=== PATIENT | female | born 1950 | race Caucasian/White ===

== ENCOUNTER 2017-01-08 20:07 | Inpatient (IN) ==
[2017-01-08] MEDS ORDERED: DILAUDID IV ONE (20:17)
[2017-01-08] MEDS ORDERED: ZOFRAN IV ONE (20:17)
[2017-01-08 21:53] LABS: URINE MICRO REVIEW NEEDED? NO; URINE SOURCE CATH
[2017-01-08 21:53] LABS: MANUAL DIFF NEEDED? NO
[2017-01-08 22:00] LABS: BASO% 0.3 % (0.0-0.8); HEMATOCRIT 32.6 % (37.0-47.0); HEMOGLOBIN 11.2 g/dL (12.0-16.0); IMM GRAN# 0.03 X1000 (0.0-0.04); IMM GRAN% 0.5 % (0.0-0.5); LYMPH# 0.81 X1000 (1.2-3.4); LYMPH% 14.1 % (20.5-51.1); MCH 31.5 PG (27-31); MCHC 34.4 g/dL (33-37); MCV 91.8 FL (81-99); MONO# 0.79 X1000 (0.11-0.59); MONO% 13.8 % (1.7-9.3); NEUT% 71.3 % (42.2-75.2); PLT 350 X1000 (130-400); RBC 3.55 XMIL (4.2-5.4)
[2017-01-08 22:02] LABS: BILIRUBIN URINE NEGATIVE (NEGATIVE); BLOOD URINE NEGATIVE (NEGATIVE); COLOR YELLOW; GLUCOSE URINE NEGATIVE (NEGATIVE); LEUKOCYTES URINE NEGATIVE (NEGATIVE); NITRITE URINE NEGATIVE (NEGATIVE); PH URINE 8.5; PROTEIN URINE NEGATIVE (NEGATIVE); SP GRAVITY URINE 1.012; TURBIDITY URINE CLEAR (CLEAR); UROBILINOGEN URINE 2 mg/dL (NORMAL)
[2017-01-08 22:03] LABS: UR EPITHELIAL CELLS <10 /HPF (<10); URINE BACTERIA NEGATIVE /HPF; URINE RBC <10 /HPF (<10); URINE WBC <10 /HPF (<10)
[2017-01-08] MEDS ORDERED: DILAUDID IV PRN (22:03)
[2017-01-08] MEDS ORDERED: TYLENOL PO PRN (22:03)
[2017-01-08] MEDS ORDERED: ZOFRAN IV PRN (22:03)
[2017-01-08 22:06] LABS: INR 0.96; PROTIME 10.1 Seconds (9.2-11.7); PTT 26.7 Seconds (22.0-36.0)
[2017-01-08 22:23] LABS: ALBUMIN 4.1 g/dL (3.5-5.0); CALCIUM 9.9 mg/dL (8.8-10.2); POTASSIUM 3.5 mmol/L (3.5-5.1); TOTAL BILIRUBIN 0.18 mg/dL (0.20-1.00)
[2017-01-08] MEDS: NS 1,000 ML IV SCH (22:33)
[2017-01-08] MEDS ORDERED: VALIUM PO ONE (22:39)
[2017-01-08] MEDS ORDERED: VALIUM IV ONE (22:43)
[2017-01-08] MEDS ORDERED: SODIUM CHLORIDE 0.9% INJ SCH (22:45)
[2017-01-08] MEDS ORDERED: KLOR-CON PO ONE (22:57)
[2017-01-08] MEDS ORDERED: DUONEB (A & A) INH PRN (23:00)
[2017-01-08] MEDS: PEPCID IV SCH (23:23)
[2017-01-09] MEDS: DILAUDID IV PRN ×3 (01:19→11:22)
--- NOTE | 2017-01-09 04:26 | HISTORY AND PHYSICAL ---
PRIMARY CARE PHYSICIAN: Dr. Hernandez REASON FOR ADMISSION: Right hip pain. HISTORY OF PRESENT ILLNESS: Ms. Marcelle Norman is a 66-year-old lady with past history of hypertension, hypothyroidism, hyperlipidemia, and COPD on home O2. She also has a history of reflux disease. She comes in today after sustaining a fall and being unable to get up because of intense pain in her right hip. She said she had just gotten up from a sitting position and noticed her right leg was "." She normally has these spells every now and again and usually shakes her right leg to improve the circulation. On this occasion, she tried to shake her right leg and in the process, lost balance fell forward, landed on her right knee and then fell onto the right side of her hip. She denied any contact with her head to the floor or loss of consciousness. No antecedent cardiorespiratory symptoms. When she tried to get up, the pain was so intense, she called for help from her , who subsequently called EMS and brought her in for further evaluation. REVIEW OF SYSTEMS: Twelve system review is negative. Only notable for constipation and slowly progressively worsening exercise tolerance and dyspnea on exertion. Twelve system review is negative. Positive as per HPI. ALLERGIES: Codeine. HOME MEDICATIONS: She is on gabapentin 300 mg t.i.d., Synthroid 1000 mcg daily , lisinopril 5 mg daily, lovastatin 40 mg daily, Procardia 90 mg daily, omeprazole 40 mg daily, potassium 20 mEq daily, Carafate 1 g t.i.d., trazodone 100 mg at bedtime, chlorthalidone 25 mg daily, Prozac 60 mg t.i.d., Depakote 500 mg daily. SURGICAL HISTORY: She has had multiple back surgeries, neck surgery, hysterectomy, cholecystectomy, bilateral carpal tunnel and bilateral hip and lots of shoulder surgeries. FAMILY HISTORY: Notable for congestive heart failure, DVTs, atrial fibrillation. No diabetes. SOCIAL HISTORY: Lives with her spouse. Does not smoke, drink or use illicit drugs. LABORATORY WORK: White count 5000, hemoglobin 11 and hematocrit 32, platelets 350,000. Normal differential. Potassium 3.5. Sodium 134, BUN 17, creatinine 1.1. PT/PTT is normal. Urinalysis is clean. Chest x-ray shows no infiltrate and no cardiopulmonary abnormality. Hip x-ray and right pelvic x-ray shows an impaction fracture of the right neck of the femur. PHYSICAL EXAMINATION: GENERAL: Middle-aged woman who is in moderate distress from her pain. VITAL SIGNS: Blood pressure is 106/50, heart rate 67, respirations 16, temperature 98.2 degrees, O2 98% on room air. HEENT: Head is normocephalic, atraumatic. Eyes DARION, EOMI. She is anicteric but pale. ENT and oropharyngeal exam is grossly normal. NECK: Supple. No JVD or carotid bruit. No thyromegaly. CHEST: Clear to auscultation with good air to both lung espinal. CARDIOVASCULAR: First and second heart sounds heard. No gallops, murmurs or rubs. Rhythm is regular. ABDOMEN: Full, soft, no tenderness. No organomegaly. Bowel sounds normal. RECTAL: Deferred at this time. EXTREMITIES: Patient has noticeably shortened and externally rotated right lower extremity but pulses distally in all extremities are intact with good volume and are symmetrical. No clubbing or peripheral cyanosis or edema. NEUROLOGICAL: Grossly intact. Although, she is able to wiggle her toes on her right foot, but unable to move the right leg because for obvious reasons. SKIN: Intact with no breakdown lesion or pain. MUSCULAR: Exam see above. ASSESSMENT: 1. Right hip fracture. 2. Hypertension. 3. Hyperlipidemia. 4. Hypothyroidism. 5. Chronic obstructive pulmonary disease on home O2. 6. Hypokalemia. PLAN: At this time, Dr. Blake, the orthopedic surgeon, was notified and he will see the patient later in the morning. Keep patient NPO and treat her symptomatically regarding her pain and muscle spasms. She may require Hancock's traction and I have instructed the nurse to contact Dr. Blake for further orders. Cautious use of antihypertensives in this patient, and unless systolic blood pressure are greater than 150. DVT prophylaxis will be determined by the surgeon. P.r.n. nebulizer treatments and home O2 will be administered regarding patient's underlying COPD. Avoid any excessive [employer] medications due to the fact the patient will be probably undergoing general anesthesia and we will need to avoid drug interaction. cc: MD Alberto Crawford MD MTDD
[2017-01-09 05:22] LABS: MCH 32.2 PG (27-31); MCHC 33.3 g/dL (33-37); MCV 96.5 FL (81-99); MPV 9.9 FL (7.4-10.4); RBC 3.11 XMIL (4.2-5.4)
[2017-01-09] MEDS: SYNTHROID PO SCH ×2 (05:43→06:11)
[2017-01-09 05:45] LABS: AGAP 11; BUN 13 mg/dL (8-22); CALCIUM 8.8 mg/dL (8.8-10.2); CHLORIDE 98 mmol/L (98-107); COSMO 271; SODIUM 135 mmol/L (136-145); TCO2 26 mmol/L (25-35)
[2017-01-09] MEDS ORDERED: NEURONTIN PO SCH (09:00)
[2017-01-09] MEDS ORDERED: KEFZOL 1 GM/D5W 1 GM/50 ML IVPB IV ONE (09:03)
[2017-01-09] MEDS: PRINIVIL PO SCH (09:42)
[2017-01-09] MEDS: LASIX PO SCH (09:42)
[2017-01-09] MEDS: DEPAKOTE PO SCH (09:42)
[2017-01-09] MEDS: NEURONTIN PO SCH ×3 (09:42→17:02)
[2017-01-09] MEDS: ADALAT CC PO SCH (09:42)
--- NOTE | 2017-01-09 10:05 | Diag Imaging Result Doc PS360 ---
CHEST-PORTABLE - 01/08/2017 INDICATION: PRE-OP TECHNIQUE: COMPARISON: 05/25/2015 FINDINGS: The lungs are normally expanded and clear. Heart size and mediastinal contours are normal. No pneumothorax or pleural effusion. IMPRESSION: Negative exam. Electronically signed by David Escobar 01/09/2017 10:03 AM
--- NOTE | 2017-01-09 10:05 | Diag Imaging Result Doc PS360 ---
XRAY PELVIS W/HIP 2-3VW RT - 01/08/2017 INDICATION: FALL TECHNIQUE: Two views COMPARISON: 05/25/2015 FINDINGS: There is an acute comminuted impacted right femoral neck fracture. No dislocation. No obvious pelvis fractures otherwise. IMPRESSION: Acute right hip fracture. Electronically signed by David Escobar 01/09/2017 10:02 AM
--- NOTE | 2017-01-09 11:18 | PROGRESS NOTE ---
DATE: 01/09/2017 SUBJECTIVE: She feels comfortable. She did get some rest last night. She is awake, alert, and oriented x3. Breathing comfortably. OBJECTIVE: Vital signs: Temperature 98.3 degrees, pulse 56, respirations 12, blood pressure 118/98. Neck: CVP less than 6 cm. Lungs: Clear in all lung espinal. Cardiovascular: Regular rhythm and rate, without murmur or S3. Abdomen: Soft. Skin: Warm and dry. WEIGHT: 155 pounds. URINE OUTPUT: 1300 mL. LABORATORY: White count 6580, hematocrit 30, platelet count 289,000. Sodium 135, potassium 4.0, chloride 98, bicarbonate 26, BUN 13, creatinine 0.9, blood sugar 110. ASSESSMENT AND PLAN: 1. Right hip fracture. She fell after getting out of her recliner. Dr. Dung Blake has seen the patient and plan is for open reduction, internal fixation this morning. 2. Hypertension. Blood pressure well controlled. 3. Hypothyroidism. Appears euthyroid. 4. History of chronic obstructive pulmonary disease, on home oxygen. Breathing comfortably. Pain control appears to be good. REVIEW OF ORDERS: She is on Mevacor 40 mg a day. She is on nifedipine ER 30 mg a day. Getting normal saline at 100 mL an hour. Prinivil 20 mg a day. Synthroid 75 mcg daily. Gets Dilaudid 1 mg IV q.3 hours. Neurontin 300 mg p.o. t.i.d. Lasix 20 mg daily. Prozac 20 mg a day. Pepcid 20 mg IV q.12 hours. Depakote 500 mg a day. LABORATORY REVIEW: Renal function looks good. Creatinine 0.9. Hematocrit when she presented was 32. This morning, it was 30. Hemoglobin of 10. PAST MEDICAL HISTORY REVIEW: She has had multiple back surgeries, neck surgery, hysterectomy, cholecystectomy, bilateral carpal tunnel, bilateral hip, and lots of shoulder surgeries. cc: Justyn Fish MD
[2017-01-09] MEDS: NS 1,000 ML IV SCH ×2 (11:23→19:01)
[2017-01-09] MEDS ORDERED: KEFZOL 1 GM/D5W 1 GM/50 ML IVPB ONE (12:57)
[2017-01-09] MEDS ORDERED: NEOSPORIN G.U. IRRIGANT ONE (12:58)
[2017-01-09] MEDS ORDERED: EXPAREL 1.3% ONE (13:03)
[2017-01-09] MEDS ORDERED: MARCAINE 0.25% PF/EPI 1:200,000 ONE (13:04)
[2017-01-09] MEDS ORDERED: TORADOL ONE (13:05)
[2017-01-09] MEDS ORDERED: SODIUM CHLORIDE 0.9% ONE (13:05)
[2017-01-09] MEDS ORDERED: DIPRIVAN 1% ONE (13:14)
[2017-01-09] MEDS ORDERED: ZOFRAN ONE (13:15)
[2017-01-09] MEDS ORDERED: SODIUM CHLORIDE 0.9% 10 ML ONE ×2 (13:15→13:47)
[2017-01-09] MEDS ORDERED: FENTANYL ONE (13:15)
[2017-01-09] MEDS ORDERED: XYLOCAINE-MPF 2% ONE (13:15)
[2017-01-09] MEDS ORDERED: ROBINUL ONE ×2 (13:15→13:40)
[2017-01-09] MEDS ORDERED: DURAMORPH ONE (13:22)
[2017-01-09] MEDS ORDERED: CYKLOKAPRON 1,000 MG/NS 1,000 MG/100 ML IVPB ONE (13:33)
[2017-01-09] MEDS ORDERED: EPHEDRINE ONE ×2 (13:47→14:32)
--- NOTE | 2017-01-09 13:56 | CONSULTATION ---
DATE OF CONSULTATION: 01/09/2017 CHIEF COMPLAINT: Right hip injury. HISTORY: Marcelle Norman is a 66-year-old female who fell and injured her right hip. She complains of right hip pain, deformity, and inability to ambulate. Past medical history, surgical history, medications and allergies - see admission history and physical. PHYSICAL EXAMINATION: General: Well-developed, well-nourished female. She is alert and cooperative. Exam is of her hip reveals pain with any range of motion. Her hip is shortened and externally rotated. Her leg is neurovascularly intact. IMAGING STUDIES: X-rays show a displaced femoral neck fracture. IMPRESSION: Displaced femoral neck fracture. PLAN: We will plan on performing a right bipolar hemiarthroplasty. I have discussed with her the risks, benefits, and alternatives of this, including but not limited to bleeding, nerve damage, infection, risk from anesthesia, hardware failure, malunion, dislocation, leg length inequality, up to and including loss of limb, life, and other imponderables. She voices understanding. All questions were answered. No guarantees given. She requested we proceed as planned. We will schedule surgery as soon as possible. cc: Gaston Blake MD
[2017-01-09] MEDS ORDERED: DECADRON ONE (14:20)
[2017-01-09] MEDS ORDERED: OFIRMEV 1000 MG/ISOTONIC SOLN 1,000 MG/100 ML BOTTLE ONE (14:20)
--- NOTE | 2017-01-09 15:20 | OPERATIVE NOTE ---
PROCEDURE DATE: 01/09/2017 PREOPERATIVE DIAGNOSIS: Right displaced femoral neck fracture. POSTOPERATIVE DIAGNOSIS: Right displaced femoral neck fracture. PROCEDURE PERFORMED: Right anterior bipolar hemiarthroplasty using and DePuy Corail size 14 standard offset stem with a +1-1/2, 28 mm neck length and a 47 mm bipolar head. ANESTHESIA: Spinal. SURGEON: Dr. Gaston Blake. DESK PENS ASSEMBLER: Shivani Rodarte PA-C. COMPLICATIONS: None. BLOOD LOSS: Minimal. DRAINS: Hemovac x1. DESCRIPTION OF PROCEDURE: The patient was brought to the operative suite and placed in supine position. After successful administration of spinal anesthesia, the patient was placed on the OSI table in the usual position for right hip. The right hip was then prepped and draped in the usual sterile fashion. A longitudinal incision was made beginning 2 cm distal and 2 cm lateral to the anterior superior iliac spine extending slightly laterally 8 cm. I dissected sharply through the skin and subcutaneous tissue down to tensor fascia. The tensor fascia was incised and dissected bluntly down the deep tensor fascia. The deep tensor fascia was incised, and the circumflex vessels were electrocauterized, exposing the anterior capsule. The reflected head of the rectus femoris was elevated off the anterior aspect of the anterior capsule and a T capsulotomy was performed exposing the femoral neck. A femoral neck cut was made with an oscillating saw. Femoral head was removed with power corkscrew. It was measured to 47 mm. A 47 mm trial was found to be an excellent fit. Attention was then directed to the femur. It was externally rotated, extended, adducted, and elevated out of the wound with the hook on the OSI bed. The lateral neck was rongeured, and the canal was serially broached to a size 14. A size 14 standard offset, +1-1/2 neck length was trialed and found be excellent leg length, stability, and offset. The trial was removed. The definitive stem was seated on the femur. The 28 mm head and bipolar 47 mm head were seated on the Mcguire taper, and the hip was copiously irrigated and dried. The hip was again reduced and it was again found to be in excellent position. The hip was copiously infiltrated with Exparel, including posterior capsule, anterior capsule, anterior musculature, and subcutaneous tissue. The anterior capsule was repaired with 0 V-Loc suture and then the drain was placed deep to the tensor fascia, and the tensor fascia with running 0 V-Loc suture. The Jt's fascia was closed with running 2-0 Vicryl suture. Skin edge approximated with 2 -0 Vicryl. Skin was closed with Monocryl and Prineo. A sterile dressing was applied. The patient tolerated the procedure well without complication. At the end of the procedure, all counts were correct x2. The patient was transferred to the recovery room in stable condition. cc: Gaston Blake MD MTDD
[2017-01-09] MEDS: PEPCID IV SCH (17:03)
[2017-01-09] MEDS ORDERED: MORPHINE IV PRN (17:30)
[2017-01-09] MEDS ORDERED: ZOFRAN IV PRN (17:30)
[2017-01-09] MEDS ORDERED: AMBIEN PO PRN (17:30)
[2017-01-09] MEDS ORDERED: MILK OF MAGNESIA PO PRN (17:30)
[2017-01-09] MEDS ORDERED: CYKLOKAPRON 1,000 MG in NS 100 ML IV ONE (18:00)
[2017-01-09] MEDS: KEFZOL 2 GM/D5W 2 GM/50 ML IVPB IV SCH (20:51)
[2017-01-09] MEDS: PERIDEX MT SCH (20:52)
[2017-01-09] MEDS: COLACE PO SCH (20:52)
[2017-01-09] MEDS: MEVACOR PO SCH (20:52)
[2017-01-09] MEDS: CELEBREX PO SCH (20:52)
[2017-01-09] MEDS: OXY IR PO PRN (20:53)
[2017-01-09] MEDS: LYRICA PO SCH (20:53)
[2017-01-10] MEDS: TYLENOL PO SCH ×5 (00:21→17:24)
[2017-01-10] MEDS: NS 1,000 ML IV SCH ×2 (00:21→13:42)
[2017-01-10] MEDS: ULTRAM PO SCH ×5 (00:25→17:23)
[2017-01-10] MEDS: OXY IR PO PRN ×3 (02:55→13:40)
[2017-01-10] MEDS: KEFZOL 2 GM/D5W 2 GM/50 ML IVPB IV SCH ×2 (02:56→04:13)
[2017-01-10 05:51] LABS: HEMATOCRIT 27.1 % (37.0-47.0); HEMOGLOBIN 8.9 g/dL (12.0-16.0)
[2017-01-10] MEDS: XARELTO PO SCH (06:02)
[2017-01-10] MEDS: SYNTHROID PO SCH (06:02)
[2017-01-10 06:08] LABS: AGAP 12; BUN 10 mg/dL (8-22); CALCIUM 8.2 mg/dL (8.8-10.2); CHLORIDE 95 mmol/L (98-107); COSMO 266; POTASSIUM 3.8 mmol/L (3.5-5.1); SODIUM 133 mmol/L (136-145); TCO2 26 mmol/L (25-35)
[2017-01-10] MEDS ORDERED: PEPCID PO SCH (09:00)
[2017-01-10] MEDS ORDERED: DECADRON IV ONE (09:00)
[2017-01-10] MEDS: PRINIVIL PO SCH (09:42)
[2017-01-10] MEDS: COLACE PO SCH ×2 (09:42→22:29)
[2017-01-10] MEDS: CELEBREX PO SCH ×2 (09:42→22:29)
[2017-01-10] MEDS: ADALAT CC PO SCH (09:43)
[2017-01-10] MEDS: LYRICA PO SCH ×2 (09:43→22:29)
[2017-01-10] MEDS: DEPAKOTE PO SCH (09:43)
[2017-01-10] MEDS: LASIX PO SCH (09:43)
[2017-01-10] MEDS: NEURONTIN PO SCH (09:43)
[2017-01-10] MEDS: PERIDEX MT SCH ×2 (09:44→22:30)
--- NOTE | 2017-01-10 10:22 | PROGRESS NOTE ---
DATE: 01/10/2017 SUBJECTIVE: Marcelle Norman is a 66-year-old female who is postoperative day 1 from a right bipolar hemiarthroplasty. She has no complaints. OBJECTIVE: She is a well-developed, well-nourished female. She is alert, oriented, and cooperative with the examination. Vital Signs: Vital signs are stable. She is afebrile. Her hematocrit is 27.1%. Her hemoglobin is 8.9. Her wound is clean, dry, and intact without sign of infection. Her leg is neurovascularly intact. She has had minimal output from her drain. IMPRESSION: Stable postoperative day 1 visit from a right bipolar hemiarthroplasty. PLAN: They have removed her drain, Juárez, and IV fluids. Instructed her in physical therapy. She will likely go to rehab the 1st part of the week. cc: Gaston Blake MD
--- NOTE | 2017-01-10 13:56 | PROGRESS NOTE ---
DATE: 01/10/2017 SUBJECTIVE: Ms. Norman has had a good deal of confusion. She has refused her p.o. medications. She is breathing comfortably. She remains afebrile status post open reduction internal fixation for her hip fracture. OBJECTIVE: Vital signs: Pulse 68, respirations 16, blood pressure 124/68. HEENT: Pupils are equal and round. Neck: CVP less than 6 cm. Lungs: Clear in all lung espinal. Cardiovascular: Regular rhythm and rate without murmur or S3. Abdomen: Soft. Extremities: No pedal edema. Intake and output: Urine output is over 2 L. LABORATORY: Hemoglobin 8.9, hematocrit 27. Yesterday hemoglobin was 10, hematocrit 30. Chemistry: Sodium 133, potassium 3.8, chloride 95, BUN 10, creatinine 0.8. Blood sugars 104, 110, 111. ASSESSMENT AND PLAN: 1. Status post postoperative day 1, right bipolar hemiarthroplasty for hip fracture. Removed her drain and her Juárez. Pursue physical therapy. 2. Appears to have underlying dementia with delirium and some hospital psychosis. Will review all of her medications she is still getting morphine. We may need to stop the morphine. We can try her on some Ultram 100 mg p.o. q.6 hours p.r.n. 3. She had some urinary sediment. I do not know if there was really an active infection but I am going to treat her nonetheless with Rocephin or ceftriaxone 1 g q.24 hours. 4. Blood pressures appear well controlled. 5. Blood-loss anemia. Will watch hemoglobin hematocrit. Hematocrit 27 and hemoglobin 8.9. cc: Justyn Fish MD
[2017-01-10] MEDS: MEVACOR PO SCH (22:29)
[2017-01-11] MEDS: TYLENOL PO SCH ×3 (00:34→10:57)
[2017-01-11] MEDS: ULTRAM PO SCH ×3 (00:34→10:56)
--- NOTE | 2017-01-11 03:52 | PROGRESS NOTE ---
DATE: 01/10/2017 ADDENDUM: Ms. Grecia Norman was sitting up in chair and she was comfortable and she has had a pretty good night. She is wanting to pursue home health for physical therapy. I had dictated previously in my note that there was confusion and this was on the wrong patient. She has not had any confusion or delirium. Making good progress. OBJECTIVE: Vital signs: Pulse 68, respirations 16, blood pressure 124/68. HEENT: Pupils are equal, round. Lungs: Are clear in all lung espinal. Cardiovascular: Regular rhythm and rate without murmur or S3. Abdomen: Soft. Skin: Is warm and dry. Extremities: Good pedal pulses. ASSESSMENT AND PLAN: Status postop day right bipolar hemiarthroplasty. Moved a drain Juárez continue. I think I will stop her Neurontin and continue p.o. pain medicines. Hopefully we can aim for home health. She may be able to be discharged tomorrow. cc: Justyn Fish MD
[2017-01-11] MEDS: SYNTHROID PO SCH (06:03)
[2017-01-11] MEDS: XARELTO PO SCH (06:03)
[2017-01-11 06:08] LABS: HEMOGLOBIN 8.7 g/dL (12.0-16.0)
[2017-01-11 07:18] LABS: HEMATOCRIT 25.9 % (37.0-47.0)
[2017-01-11] MEDS: NS 1,000 ML IV SCH (07:54)
[2017-01-11] MEDS: LYRICA PO SCH (08:30)
[2017-01-11] MEDS: LASIX PO SCH (08:31)
[2017-01-11] MEDS: CELEBREX PO SCH (08:31)
[2017-01-11] MEDS: DEPAKOTE PO SCH (08:31)
[2017-01-11] MEDS: COLACE PO SCH (08:32)
[2017-01-11] MEDS: ADALAT CC PO SCH (08:32)
[2017-01-11] MEDS: PERIDEX MT SCH (08:32)
[2017-01-11] MEDS: PRINIVIL PO SCH (08:32)
[2017-01-11] MEDS ORDERED: PROZAC PO SCH (09:00)
[2017-01-11 11:35] VITALS: BP 101/63
--- NOTE | 2017-01-11 12:50 | DISCHARGE SUMMARY ---
ADMISSION DATE: 01/08/2017 DISCHARGE DATE: 01/11/2017 HISTORY AND HOSPITAL COURSE: This is a 66-year-old. She came in with right hip pain. She is a patient of Dr. Hernandez. She has a past medical history of hypertension, hypothyroidism, hyperlipidemia, COPD on home O2. She also has a history of gastroesophageal reflux disease. She came in after sustaining a fall and being unable to get up, with intense pain in her right hip. Found a right hip fracture in the emergency room, was admitted, and underwent open reduction internal fixation per Dr. Dung Blake, orthopedist. Did a right anterior bipolar hemiarthroplasty. She tolerated that well. Tolerated physical therapy well. Postop she did have a drop in hematocrit from acute blood loss anemia, normocytic. Hemoglobin was 8.9 and hematocrit 27 and this was stable at 01/11. She wanted go home with home health. Will discharge her home. DISCHARGE MEDICATIONS: She will take DuoNeb if needed, Celebrex 200 mg b.i.d., Depakote 500 mg a day, Colace 100 mg b.i.d., Prozac 20 mg daily. She was taking Lasix 20 mg daily, Synthroid 75 mcg p.o. daily, Prinivil 20 mg a day, Mevacor 40 mg a day, Adalat CC which is nifedipine 30 mg p.o. daily. He will give her some oxycodone which is OxyIR 5-10 one to two q.3 hours p.r.n., Lyrica 75 mg b.i.d., and her Xarelto 10 mg daily which she will take for another 14 days and then stop. Ambien 5 mg at bedtime p.r.n. cc: Justyn Fish MD
--- NOTE | 2017-01-12 08:44 | DISCHARGE SUMMARY ---
ADMISSION DATE: 01/08/2017 DISCHARGE DATE: 01/11/2017 ADMISSION DIAGNOSES: 1. Right displaced femoral neck fracture. 2. Hypertension. 3. Hyperlipidemia. 4. Hypothyroidism. 5. Chronic obstructive pulmonary disease. No exacerbation on home oxygen. 6. Hypokalemia. DISCHARGE DIAGNOSES: 1. Right displaced femoral neck fracture now status post right anterior bipolar hemiarthroplasty by Dr. Blake. 2. Hypertension, stable. 3. Hyperlipidemia, stable. 4. Hypothyroidism, stable. 5. Chronic obstructive pulmonary disease. No exacerbation on home oxygen, stable. 6. Hypokalemia, resolved with last potassium level being 3.8 on 01/10/2017. CONSULTATION: Dr. Blake for repair of right displaced femoral neck fracture. PROCEDURE: Surgery on 01/09/2017; Dr. Blake performed a right anterior bipolar hemiarthroplasty for a right displaced femoral neck fracture. Minimal blood loss. Had a Hemovac x1 placed. No obvious complications. HOSPITAL COURSE: Ms. Marcelle Norman is a 66-year-old female with a medical history of hypertension, hypothyroidism, hyperlipidemia, COPD on home O2, reflux, who apparently sustained a fall and was unable to get up secondary to intense pain up the right hip. Apparently she had just gotten up from a sitting position, noticed her right leg felt which occurs on occasion, and she usually shakes her leg to improve the circulation. Apparently on this occasion, she tried to shake her right leg and in the process lost her balance and fell forward, landing on the right knee and then onto the right hip. She denied any contact of her head to the floor, no loss of consciousness. They called EMS secondary to the severe pain and unable to get up. Hip pelvis x-ray revealed that she had a right displaced femoral neck fracture and Dr. Blake was consulted. On 01/09/2017, he performed a right anterior bipolar hemiarthroplasty with no significant blood loss and no complications noted. She had a Hemovac drain that was placed during surgery. On postop day 1, they removed the drain, the Juárez and stopped her IV fluids. She was started on physical therapy, was started on DVT prophylaxis Xarelto. Vital signs remained stable throughout, and today will be going home with home health. DISCHARGE VITAL SIGNS: Temperature 98.5 degrees, heart rate 66, respiratory rate 18, blood pressure 118/60, O2 saturation 95% on room air. DISCHARGE LAB DATA: On 01/11/2017, hemoglobin and hematocrit is 8.7 and 25.9. On 01/10/2017, BMP revealed sodium 133, potassium 3.8, BUN 10, creatinine 0.8, glucose 111. Calcium is 8.2. On 01/09/2017, white blood cell count was 6.5. IMAGING: Hip pelvic x-ray on 01/08/2017 revealed acute right hip fracture. Chest x-ray on 01/08/2017 was negative for any acute findings. DISCHARGE ACTIVITY: Physical therapy was ordered. DISCHARGE DIET: Regular. DISPOSITION: Home with home health. DISCHARGE INSTRUCTIONS: We will need to follow with Dr. Blake as outpatient and primary care provider, Dr. Alberto Hernandez. Dictated by YUDY Lombardo for Justyn Fish MD cc: YUDY Lombardo MD Nixon Gillespie, MD Richard S. Sharp, MD
--- NOTE | 2017-01-14 15:45 | PROVIDER DOCUMENTATION ---
This chart was entered by Tyron Guillaume Scribe, acting as scribe for Quincy Wright MD. HPI-Musculoskeletal Pain/Inj - GENERAL Chief Complaint: Fall Stated Complaint: fall Time Seen by Provider: 01/08/17 20:14 Source: patient - HX OF PRESENT ILLNESS-MUSKULOSKELTAL Nature of Presenting Problem: Pt is a 66 yowf who presents to ER via EMS after fall. Pt reports that she fell (details unspecified), landed on her right knee and then onto her right hip. Pt not complaining of 10/10 right hip pain. Pt denies hitting her head, loc, or neck pain. Pt reports hx of pelvic surgery. Quality of Pain: reports: aching, sharp, throbbing Severity in ED: moderate, severe Onset/Duration: unsure, just prior to arrival Timing: still present Any recent injury?: Yes Locality of Occurance: Home Similar Symptoms Previously?: No Recently seen or treated by another doctor?: No - FALL INJURY Location of Pain/Injury: reports: lower extremity (RLE (knee, hip)) Pain Radiation: reports: no radiation Reason for Fall: reports: unknown Loss of Consciousness: no loss of consciousness Injury Associated Symptoms: reports: joint pain, muscle aches, unable to bear weight, trouble walking. denies: arm pain, back/neck pain, chest pain, nausea, puncture wound, shortness of breath, sensory/motor loss, snap/crack/pop sensation, pain with inspiration, vomiting, weakness Review of Systems - Adult - REVIEW OF SYSTEMS - ADULT Constitutional: denies: chills, fever, fatique, night sweats, weight gain, weight loss Eyes: reports: no symptoms reported Ears, Nose, Mouth & Throat: reports: no symptoms reported Cardiovascular: denies: chest pain, irregular heart rate, palpitations, poor circulation, syncope Respiratory: denies: cough, dyspnea on exertion, excessive sputum production, shortness of breath, wheezing Gastrointestinal: reports: no symptoms reported Genitourinary: reports: no symptoms reported Musculoskeletal: reports: joint pain, joint swelling, muscle aches. denies: bone pain, back pain, frequent leg cramps, muscle weakness, neck pain Integumentary: reports: no symptoms reported Neurological: reports: no symptoms reported Psychiatric: reports: no symptoms reported Endocrine: reports: no symptoms reported Hematologic/Lymphatic: reports: no symptoms reported Allergic/Immunologic: reports: no symptoms reported All Other Systems: Reviewed and Negative Past History - Adult - PAST MEDICAL HISTORY-ADULT Review of Records: reports: Nursing Assessment Review, Medications Reviewed Cardiovascular: reports: HTN Musculoskeletal: reports: arthritis, chronic pain, fibromyalgia, intervertebral disc disease, neck/back injury, other fractures, orthopedic injury Psychiatric: reports: bipolar Endocrine/Immune: reports: thyroid disorder - PRIOR SURGERIES/PROCEDURES Surgical/Procedure History: reports: none - IMMUNIZATION STATUS Childhood Immunizations: See Nurse Assessment Flu Vaccine: See Nurse Assessment - FAMILY HISTORY Family History: reviewed, not pertinent Physical Exam-Injury Related - Physical Exam-Injury Related Initial Vital Signs Reviewed: Yes General Appearance: appears well, alert, moderate distress Eyes: PERRL/EOMI, pink conjunctivae Head, Ears, Nose, Mouth & Throat: moist mucous membranes, pharynx normal Respiratory: chest non-tender, lungs clear, normal breath sounds, no pleuratic chest pain, no respiratory distress, no accessory muscle use. negative: respiratory distress, decreased breath sounds, accessory muscle use, wheezing Cardiovascular: normal peripheral pulses, regular rate, rhythm. negative: bradycardia, tachycardia, irregularly irregular Extremity: normal inspection, no pedal edema, no calf tenderness, normal capillary refill, tenderness (right hip tender; Painful/reduced ROM in RLE). negative: normal range of motion, non-tender, normal gait, pelvis stable, deformity, erythema, inflammation, swelling Psych/Mental Status: normal mood/affect, normal thought content, normal thought process, oriented x 3 Progress - PLAN OF CARE/RESULTS Progress/Plan/Lab Results: Orders Category Date Time Status Admit - [facility] Routine AdmDCTranf 01/08/17 22:03 Ordered Activity - Up with Assistance ORDERED Care 01/08/17 22:03 Active Apply Mechanical Device [QM] ORDERED Care 01/08/17 22:03 Active Intake and Output-Strict ORDERED Care 01/08/17 22:03 Active Nursing- MD Consult Request ROUTINE Care 01/08/17 22:03 Completed Vital Signs Order Q 8-HR ASSESS Care 01/08/17 22:03 Inactive Physician/Provider Consults Routine Cons 01/08/17 22:03 Ordered NPO Diet 01/08/17 21:03 Completed CHEST-PORTABLE [RAD] Stat Exams 06/23/17 20:15 Completed XRAY PELVIS W/HIP 2-3VW RT [RAD] Stat Exams 01/08/17 20:15 Completed BASIC METABOLIC PANEL [CHEM] Routine Lab 01/09/17 05:07 Completed CBC WITH DIFF [HEME] Stat Lab 01/08/17 21:05 Completed CBC WITH NO DIFF [HEME] Routine Lab 01/09/17 05:07 Completed COMPREHENSIVE METABOLIC PANEL [CHEM] Stat Lab 01/08/17 21:05 Completed PROTIME WITH INR [COAG] Stat Lab 01/08/17 21:05 Completed PTT [COAG] Stat Lab 01/08/17 21:05 Completed TYPE & SCREEN [BBK] Routine Lab 01/08/17 21:05 Completed URINALYSIS [URINALYSIS] Stat Lab 01/08/17 21:45 Completed 0.9% Sodium Chloride Inj [Ns] 1,000 ml Med 01/08/17 22:03 Discontinued IV 75 mls/hr Acetaminophen [Tylenol] Med 01/08/17 22:03 Discontinued 650 mg PO Q6H PRN PRN Divalproex [Depakote] Med 01/09/17 09:00 Discontinued 500 mg PO DAILY Fluoxetine [Prozac] Med 01/11/17 09:00 Discontinued 20 mg PO DAILY Furosemide [Lasix] Med 01/09/17 09:00 Discontinued 20 mg PO DAILY Gabapentin [Neurontin] Med 01/09/17 09:00 Discontinued 600 mg PO TID Hydromorphone [Dilaudid] Med 01/08/17 22:03 Discontinued 0.5 mg IV Q3H PRN PRN Hydromorphone [Dilaudid] Med 01/08/17 20:17 Discontinued 1 mg IV NOW ONE LISINOpril [Prinivil] Med 01/09/17 09:00 Discontinued 20 mg PO DAILY LOVAstatin [Mevacor] Med 01/09/17 21:00 Discontinued 40 mg PO HS Levothyroxine [Synthroid] Med 01/09/17 07:00 Discontinued 75 microgm PO DAILY@0700 Nifedipine E.r. [Adalat cc] Med 01/09/17 09:00 Discontinued 30 mg PO DAILY Ondansetron [Zofran] Med 01/08/17 20:17 Discontinued 8 mg IV NOW ONE Transfer/Admit Order [TRANSFER] Routine Transfer 01/08/17 20:53 Completed Result Diagrams: 01/11/17 05:25 01/10/17 05:05 - EKG 1 Time of EKG reading by physician:: 21:16 EKG Read and Signed by:: Quincy Wright EKG Interpretation (*Must complete 3 of following elements*): Abnormal ( Nonspecific ST and T wave abnormality) Rate: 74 Rhythm: Accelerated junctional rhythm - XRAY 1 XRAY: Bilateral XRAY Study: Pelvis Impression: See EMR Report XRAY Interpretation: Intertrochanteric fx - Dr. Wright 2 XRAY: Bilateral XRAY Study: Chest Impression: See EMR Report XRAY Interpretation: Normal - Dr. Wrihgt - CONSULTS/PCP/HOSPITALIST Notification #1 *Consult/PCP/Hospitalist*: Dr. Blake (Orthopedist) Time Discussed: 20:51 #2 Consult: Dr. Boss (Hospitalist) Time Discussed: 20:52 Reason/Comments: report given by Justo Shoemaker; Will accept after all labs return Consult Disposition: other Departure - Departure Date of Disposition Decision: 01/08/17 Time of Disposition Decision: 20:56 DIAGNOSIS: Intertrochanteric fracture of right hip Disposition: ADMITTED INPATIENT 09 Certified Medical Emergency: Emergent Condition: Stable - Critical Care Note This patient required my direct & personal management of CC.: No This chart was documented by the indicated scribe, (Tyron Guillaume Scribe) and accurately reflects the services I performed and decisions made by me, Quincy Wright MD, as attested by the provider's signature.
== END 2017-01-11 13:36 | disposition home health service (06) ==
LOC: ED 20:07 → 4N 21:46 → SUATTDRO 21:46
PROVIDERS: ATTEND Emergency Medicine